=== PATIENT | male | born 1945 | race Hispanic/Latino ===

== ENCOUNTER 2023-07-03 06:00 | Day surgery (SDC) | payer OTHER ==
[~2023-07-03] VITALS: Ht 162.6 cm; Wt 59.9 kg
[2023-07-03] VITALS (11 sets, daily range): BP systolic 95–138; BP diastolic 45–57; PULSE 41–53; RESP 13–18
[~2023-07-03 06:00] MED LIST: AMOX500T2 PO; CYAN100099 PO; FERS325 PO; OMEP40CA21 PO
[2023-07-03] MEDS ORDERED: PROPOFOL 10 MG/ML 20ML VIAL IV ONE (07:58)
[2023-07-03] MEDS ORDERED: LIDOCAINE HCL 1% 20 ML VIAL ONE (07:59)
== END 2023-07-03 09:25 | disposition home or self-care (01) ==
LOC: ENDO 06:00 → DAH 06:00 → ENDO 09:25
PROVIDERS: ATTEND Internal Medicine Gastroenterology
DX: R13.12 Dysphagia, oropharyngeal phase (principal); K22.2 Esophageal obstruction; K21.00 Gastro-esophageal reflux disease with esophagitis, without bleeding; K31.89 Other diseases of stomach and duodenum; K29.50 Unspecified chronic gastritis without bleeding; B37.81 Candidal esophagitis; K31.A15 Gastric intestinal metaplasia without dysplasia, involving multiple sites; I10 Essential (primary) hypertension; Z79.899 Other long term (current) drug therapy; Z79.01 Long term (current) use of anticoagulants; Z90.89 Acquired absence of other organs; Z98.49 Cataract extraction status, unspecified eye; Z98.890 Other specified postprocedural states; Z72.89 Other problems related to lifestyle
CPT/HCPCS: 43249; 43239; J2704; A4620; A4215 ×2; A4223; A7002; A4222; A4221; A4663; A4216; J7030; A4606; J3490